=== PATIENT | female | born 1940 | race Caucasian/White ===

== ENCOUNTER 2021-11-02 16:13 | Emergency (ER) | payer BC ==
[2021-11-02] MEDS ORDERED: DIPHTH,PERTUSS(ACELL),TET 0.5 ML DISP.SYRIN IM ONE (16:32)
[2021-11-02 17:01] VITALS: BP 158/85; PULSE 65; RESP 18; TEMP 97.5; BMI 25.5
== END 2021-11-02 17:44 | disposition home or self-care (01) ==
LOC: FER 16:13
PROC: 0HQ0XZZ Repair Scalp Skin, External Approach (ICD-10-PCS; principal; 2021-11-02)
PROC: 3E0234Z Introduction of Serum, Toxoid and Vaccine into Muscle, Percutaneous Approach (ICD-10-PCS; 2021-11-02)
DX: S01.01XA Laceration without foreign body of scalp, initial encounter (principal); S50.311A Abrasion of right elbow, initial encounter; W01.0XXA Fall on same level from slipping, tripping and stumbling without subsequent striking against object, initial encounter
CPT/HCPCS: 12002-25; 70450-TC; 73070-TC-RT-FY; 90471; 90715; 99284-25

== ENCOUNTER 2021-11-08 09:08 | Emergency (ER) | payer BC ==
[2021-11-08 09:21] VITALS: BP 139/73; PULSE 84; RESP 20; TEMP 98; BMI 20.5
== END 2021-11-08 09:23 | disposition home or self-care (01) ==
LOC: FER 09:08
DX: Z48.02 Encounter for removal of sutures (principal)
CPT/HCPCS: 99281-25